=== PATIENT | female | born 1985 | race African-American/Black ===

== ENCOUNTER 2020-01-03 01:13 | Emergency (ER) | payer OTHER ==
[~2020-01-03] VITALS: Ht 170.2 cm; Wt 81.6 kg
[2020-01-03 01:13] VITALS: BP 125/84
--- NOTE | 2020-01-03 01:25 | NUR ---
AT BEDSIDE FOR EVAL.
--- NOTE | 2020-01-03 01:32 | NUR ---
Patient discharged to home in stable condition. Written and verbal after care instructions given. Patient verbalizes understanding of instruction.
== END 2020-01-03 01:33 | disposition home or self-care (01) ==
LOC: ER 01:16
DX: R56.9 Unspecified convulsions (principal)